=== PATIENT | female | born 1985 | race Asian ===

== ENCOUNTER 2023-12-22 13:47 | Outpatient (CLI) | payer OTHER, SELFPAY ==
[2023-12-22 19:07] LABS: Alanine Aminotransferase 19 U/L (6-35); Albumin Level 4.5 g/dL (3.5-5.1); Alkaline Phosphatase 44 U/L (38-126); Anion Gap 6 mmol/L (4-12); Aspartate Amino Transferase 44 U/L (14-36); Bilirubin,Total 0.7 mg/dL (0.2-1.3); Blood Urea Nitrogen 18 mg/dL (7-17); Calcium 9.9 mg/dL (8.4-10.2); Carbon Dioxide 28 mmol/L (22-30); Chloride 104 mmol/L (98-107); Estimated Glomerular Filt Rate > 60; Glucose 140 mg/dL (65-110); Potassium 3.9 mmol/L (3.4-5.0); Sodium 138 mmol/L (137-145)
== END 2023-12-22 13:48 | disposition home or self-care (01) ==
LOC: ANHGOSHLAB 13:48
PROVIDERS: PCP Emergency Medicine; Visit Provider Emergency Medicine
DX: E78.01 Familial hypercholesterolemia (principal)
CPT/HCPCS: 36415; 80053; 83036